=== PATIENT | male | born 1995 | race Caucasian/White ===

== ENCOUNTER 2019-12-25 16:05 | Emergency (ER) | payer OTHER ==
[~2019-12-25] VITALS: Ht 167.6 cm; Wt 90.7 kg
[2019-12-25 16:11] VITALS: BP 99/65
[2019-12-25] MEDS ORDERED: predniSONE 20 MG TAB PO ONE (16:30)
== END 2019-12-25 17:13 | disposition home or self-care (01) ==
LOC: MED 16:05
DX: G51.0 Bell's palsy (principal); F17.210 Nicotine dependence, cigarettes, uncomplicated
CPT/HCPCS: 99283; J7512